=== PATIENT | female | born 1990 | race African-American/Black ===

== ENCOUNTER 2023-03-22 22:09 | Emergency (ER) | payer BC, OTHER ==
[~2023-03-22] VITALS: Ht 175.3 cm; Wt 113.4 kg
[2023-03-22 22:13] VITALS: BP 160/84; PULSE 92; RESP 16; TEMP 98; O2SAT 100
[2023-03-23 04:05] VITALS: BP 148/72; PULSE 71; RESP 16; TEMP 98; O2SAT 100
== END 2023-03-23 04:05 | disposition home or self-care (01) ==
LOC: MED 22:09
DX: H91.92 Unspecified hearing loss, left ear (principal)
CPT/HCPCS: 99281